=== PATIENT | female | born 1995 | race Caucasian/White ===

== ENCOUNTER 2019-08-19 15:15 | Emergency (ER) | payer OTHER, SELFPAY ==
[2019-08-19 15:26] VITALS: PULSE 93; RESP 18; TEMP 37.3; O2SAT 100
--- NOTE | 2019-08-19 16:04 | ED.GENADULT ---
HPI - General Adult General Chief complaint: Headache Stated complaint: pain in neck, headache, blurry vision Time Seen by Provider: 08/19/19 16:04 Source: patient Mode of arrival: ambulatory Limitations: no limitations History of Present Illness HPI narrative: 24-year-old female patient presents to the [facility] with complaints of headache, neck pain and right sided hip pain for about a week now. Patient states she has been doing a lot of schooling online in which she does sit at a table and is on the computer a lot. Patient states she is also been having issues with sleeping. 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 Patient states she is also been having a lot of stress and anxiety recently. Denies any fevers, chest pain or shortness of breath. Patient states she has been taking some ibuprofen for her pain as well as some melatonin which has not helped with sleeping. Related Data Allergies Allergy/AdvReac Type Severity Reaction Status Date / Time No Known Allergies Allergy Unverified 07/04/18 08:41 Review of Systems Review of Systems: Narrative: CONSTITUTIONAL: Denies fever, chills, or sweats. EYES: Denies visual changes, redness, or discharge. ENT: Denies rhinorrhea, congestion, sore throat, or otalgia. CARDIOVASCULAR: Denies chest pain, palpitations, or edema. RESPIRATORY: Denies cough or dyspnea. GASTROINTESTINAL: Denies abdominal pain, nausea, vomiting, or diarrhea. GENITOURINARY: Denies dysuria or hematuria. SKIN: Denies rash or itching. MUSCULOSKELETAL: Denies back pain, denies joint pain, or myalgia. Positive neck pain, positive right hip pain NEUROLOGIC: Positive headache, denies numbness, or weakness. PSYCHIATRIC: Denies anxiety or depression. PMFSH Comments At the time of my signature I agree with nursing past medical history, surgical, social, and family history. There is no relevant family history pertinent to the presenting complaint. Exam Narrative: Exam Narrative: GENERAL: Well-appearing, well-nourished, and in no acute distress. HEAD: Normocephalic, atraumatic. EYES: PERRLA and EOMI. ENT: Nares clear, no rhinorrhea or epistaxis. Mucous membranes moist. NECK: Supple, no lymphadenopathy. No surface trauma, no soft tissue tenderness, muscle spasm noted on palpation to the right scapular area that reproduces the pain when pressure is applied. Trachea midline. No subq emphysema or crepitus. No gary tenderness, step-offs or deformity to firm Palpation at posterior midline. FROM without limitation or pain, normal flexion, extension,Lateral bending, rotation, and axial load. CHEST: Clear to auscultation. No respiratory distress. HEART: Regular rate and rhythm. No murmur heard. Normal peripheral pulses. ABDOMEN: Soft, nontender, nondistended, normal active bowel sounds. EXTREMITIES: Patient is able to ambulate to treatment area without difficulty or assistance, pain, or limp. No surface trauma, ecchymosis. no erythema, warmth. No deformity or crepitus or obvious asymmetry of the affected leg compared to the other. No tenderness to palpation over symphysis pubis, ischial bone,iliac crest, trochanter, SI notch, buttocks, quadriceps, femoral triangle, inguinal ligament. No inguinal lymphadenopathy. ROM unlimited and without pain. Normal flexion to chest, extension, abduction and adduction. Distal motor and neurovascular status are intact. SKIN: Warm, dry, no rash. NEURO: Alert and oriented x4, GCS 15. Cranial nerves II through XII grossly intact. No focal neurological deficits. Normal muscle strength and tone. Normal deep tendon reflexes. Negative Babinski, normal finger to nose coordination he had normal heel to alexander glide. Speech is clear. Normal gait. Negative Romberg and no pronator drift Course Vital Signs Vital signs: Vital Signs Temperature 37.3 C 08/19/19 15:26 Pulse Rate 93 08/19/19 15:26 Respiratory Rate 18 08/19/19 15:26 Pulse Oximetry 100 08/19/19 15:26 Temperature 37.3 C 08/19/19
== END 2019-08-19 16:21 | disposition home or self-care (01) ==
PROVIDERS: Emergency Provider Nurse Practitioner Family
DX: G44.209 Tension-type headache, unspecified, not intractable (principal); M62.830 Muscle spasm of back; M25.551 Pain in right hip
CPT/HCPCS: 99213; G0463